=== PATIENT | male | born 1935 | race Caucasian/White ===

== ENCOUNTER → 2019-11-07 | Outpatient (CLI) | payer OTHER, BC ==
[~2019-11-07] MED LIST: AVAPRO75 MG PO; BENICAR 5 MG5 M1 PO; BENICAR20 MG PO; C-10001000 M1 PO; CHROMIUM PICO200 MC1 PO; CITRACAL + D M1 EACH PO; CO Q-10100 MG PO; FUROSEMIDE 40 M40 M1 PO; GARLIC OIL1 EACH PO; L-LYSINE1000 M1 PO; LECITHIN400 MG PO; LEVOTHYROXINE0.05 MG PO; LIPITOR20 MG PO; LORTAB 5-500 T1 EAC1 PO; MULTIVITAMINS PO; OMEGA-31000 M1 PO; POTASSIUM20 PO; PRILOSEC20 MG PO; TAMSULOSIN HCL0.4 MG PO; TENORMIN25 MG PO; VITCB500GO PO
== END ==
LOC: SJCVCIMAG 09:46
DX: I65.23 Occlusion and stenosis of bilateral carotid arteries (principal); I44.7 Left bundle-branch block, unspecified; R94.31 Abnormal electrocardiogram [ECG] [EKG]; I51.7 Cardiomegaly; I44.0 Atrioventricular block, first degree; I25.10 Atherosclerotic heart disease of native coronary artery without angina pectoris; I25.5 Ischemic cardiomyopathy; E78.00 Pure hypercholesterolemia, unspecified; I10 Essential (primary) hypertension

== ENCOUNTER → 2020-06-04 | Outpatient (CLI) | payer OTHER, BC | LOC: SJCVCIMAG 07:01 | PROVIDERS: ATTEND Internal Medicine Cardiovascular Disease | DX: I44.7 Left bundle-branch block, unspecified (principal); I44.0 Atrioventricular block, first degree; I25.10 Atherosclerotic heart disease of native coronary artery without angina pectoris; I25.2 Old myocardial infarction; I25.5 Ischemic cardiomyopathy; E78.00 Pure hypercholesterolemia, unspecified; I65.23 Occlusion and stenosis of bilateral carotid arteries; M19.90 Unspecified osteoarthritis, unspecified site; Z79.899 Other long term (current) drug therapy; Z87.891 Personal history of nicotine dependence ==

== ENCOUNTER → 2020-12-30 | Outpatient (CLI) | payer OTHER, BC ==
[~2020-12-30] VITALS: Ht 172.7 cm; Wt 90.7 kg
[~2020-12-30] MED LIST changes: +LEVO-T50 MCG PO; +LIPITOR80 MG PO; +NITROSTAT0.4 M1 SUBLING
[2020-12-30 13:08] VITALS: BP 91/65
--- NOTE | 2020-12-30 13:42 | NUR ---
Pain Clinic Assessment: 1. History of Osteoarthritis: shoulder hands KNEES History of Rheumatoid Arthritis: Not Applicable 2. Height: 5 ft. 8 in. 172.7 cm. Weight: 200.0 lb. oz. 90.720 kg. Patient's BMI: 30.4 3. Vital Signs: BP: 91/65 Pulse: 80 Resp: 16 Temp: 02 Sat: 97 ECG Mon: 4. Pain Intensity: 5 5. Fall Risk: Dizziness: Y Needs help standing or walking: Y Fallen in the last 3 months: Y Fall risk comments: 6. Patient on Blood Thinner: None 7. History of Hypertension: Y 8. Opioid Therapy greater than 6 weeks: N Opiate Contract Signed: 9. Risk Assessment Tool Provided: low-0 10. Functional Assessment Tool: 11. Recreational Drug Use: Never Drug Type: Tobacco Use: Never Smoker Tobacco Type: Amount or Packs/day: How Many Years: Alcohol Use: No Frequency: Quant:
== END | disposition home or self-care (01) ==
LOC: PAIN 10:54
PROVIDERS: ATTEND Anesthesiology Pain Medicine
DX: M25.511 Pain in right shoulder (principal); M19.011 Primary osteoarthritis, right shoulder; M54.16 Radiculopathy, lumbar region; M48.061 Spinal stenosis, lumbar region without neurogenic claudication; I10 Essential (primary) hypertension; M19.90 Unspecified osteoarthritis, unspecified site; Z87.891 Personal history of nicotine dependence; Z85.828 Personal history of other malignant neoplasm of skin; Z98.890 Other specified postprocedural states; Z79.899 Other long term (current) drug therapy; Z88.8 Allergy status to other drugs, medicaments and biological substances

== ENCOUNTER → 2021-02-25 | Outpatient (CLI) | payer OTHER, BC | LOC: SJCVC 09:23 | PROVIDERS: ATTEND Internal Medicine Cardiovascular Disease | DX: R94.31 Abnormal electrocardiogram [ECG] [EKG] (principal); I25.10 Atherosclerotic heart disease of native coronary artery without angina pectoris; I10 Essential (primary) hypertension; E78.00 Pure hypercholesterolemia, unspecified; I25.5 Ischemic cardiomyopathy; I65.23 Occlusion and stenosis of bilateral carotid arteries; G89.29 Other chronic pain; M54.5 Low back pain; Z85.72 Personal history of non-Hodgkin lymphomas; Z79.82 Long term (current) use of aspirin; Z79.899 Other long term (current) drug therapy; Z88.8 Allergy status to other drugs, medicaments and biological substances; Z87.891 Personal history of nicotine dependence ==

== ENCOUNTER 2021-10-13 17:12 | Inpatient (IN) | payer OTHER, BC ==
[~2021-10-13] VITALS: Ht 172.7 cm; Wt 95.7 kg
[2021-10-13 17:13] VITALS: BP 112/67
[2021-10-13 17:47] LABS: ABSOLUTE NEUTROPHILS 8.6 thou/uL (1.4-8.2); BASOPHILS 0.5 % (0.0-2.0); EOSINOPHILS 3.1 % (0.0-3.0); HEMATOCRIT 37.6 % (42.0-52.0); HEMOGLOBIN 12.3 gm/dL (14.0-18.0); LYMPHOCYTES 10.2 % (24.0-44.0); MCH 32.2 pg (26.0-34.0); MCHC 32.6 g/dL (28.0-37.0); MCV 98.6 fL (80.0-100.0); MONOCYTES 9.5 % (1.0-8.0); PLATELET COUNT 217 thou/uL (150-400); POLYS 76.7 % (36.0-66.0); RBC 3.82 mil/uL (4.50-6.00); RDW 14.4 % (10.5-14.5); WBC 11.2 thou/uL (4.0-11.0)
[2021-10-13 18:16] LABS: CALCIUM 9.5 mg/dL (8.5-10.1); CREATININE 1.5 mg/dL (0.7-1.3); POTASSIUM 4.9 mmol/L (3.5-5.1)
[2021-10-13 18:25] LABS: ALBUMIN 3.3 g/dL (3.4-5.0); TOTAL BILIRUBIN 0.5 mg/dL (0.2-1.0)
[2021-10-14 04:13] VITALS: BP 107/58
--- NOTE | 2021-10-14 07:39 | EKG ---
[address] [address] ELECTROCARDIOGRAM REPORT Name: JONY BURGER Room #: 170-23 ADM IN M.R.#: [id number] Admission: 10/13/21 Attend Phys: Rocco Rosas MD Discharge: Date of : 37 Report #: [id number] [facility] ED Test Date: 2021-10-13 Test Time: 17:19:21 Pat Name: JONY BURGER Department: Room: 170 Gender: M Triage Nurse: BIRGIT : 1935 Requested By: Kwaku Feng Order Number: [id number] MD: Karl Andrade Measurements Intervals [place] Rate: 102 P: -19 AL: 172 QRS: -41 QRSD: 174 T: 131 QT: 390 QTc: 509 Interpretive Statements Sinus tachycardia Left bundle branch block Compared to ECG 06/17/2015 07:35:36 Left bundle-branch block now present Sinus bradycardia no longer present First degree AV block no longer present Myocardial infarct finding no longer present Electronically Signed On 10-14-2021 7:38:56 [employer] by Karl Andrade [email or web address] <ELECTRONICALLY SIGNED> By: Karl Andrade MD, FACC 10/14/21 0738 1719 1719 Karl Andrade MD, [facility] /EPI
[2021-10-14 08:27] VITALS: BP 122/78
--- NOTE | 2021-10-14 12:50 | 2DMMODE ---
[facility] [place] [address] 2 D/M-MODE ECHOCARDIOGRAM Name: JONY BURGER Room #: 170-23 ADM IN M.Jamie.#: [id number] Admission: 10/13/21 Attend Phys: Rocco Rosas MD Discharge: Date of : 37 Report #: [id number] THIS REPORT FOR: cc: Gonzalo Frost James R. DO Lammoglia, Francisco J. MD ~ APPROVED REPORT Study performed: 10/14/2021 11:10:38 EXAM: Comprehensive 2D, Doppler, and color-flow Echocardiogram Patient Location: ER Room #: 23 Status: routine BSA: 2.04 HR: 96 bpm BP: 95/56 mmHg Rhythm: LBBB Other Information Study Quality: Adequate Indications Dyspnea CAD Cardiomyopathy Hypertension/HDD Volumes Left Atrial Volume (Systole) Single Plane 4CH: 37.42 mL Single Plane 2CH: 45.08 mL LA ESV Index: 23.00 mL/m2 Aortic Valve AoV Peak Wade.: 1.14 m/s AO Peak Gr.: 5.23 mmHg LVOT Max P.55 mmHg LVOT Max V: 0.94 m/s Pulmonary Valve PV Peak Wade.: 0.77 m/s PV Peak Gr.: 2.40 mmHg Left Ventricle The left ventricle is normal size. There is hypokinesis in the inferior wall. There is hypokinesis in the posterior wall. There is [facility] [address] [place] [address] 2 D/M-MODE ECHOCARDIOGRAM Name: JONY BURGER Room #: 170-23 ADM IN M.R.#: [id number] Admission: 10/13/21 Attend Phys: Rocco Rosas, Discharge: Date of : 37 Report #: [id number] normal left ventricular wall thickness. Left ventricular ejection fraction is moderately decreased. LVEF is 35%. The left ventricular diastolic function is abnormal. Right Ventricle The right ventricle is normal size. The right ventricular systolic function is normal. Atria The left atrium size is normal. The right atrium size is normal. Aortic Valve The aortic valve is normal in structure. Trace aortic regurgitation. There is no aortic valvular stenosis. Mitral Valve The mitral valve is normal in structure. There is no mitral valve regurgitation noted. No evidence of mitral valve stenosis. Tricuspid Valve The tricuspid valve is normal in structure. There is no tricuspid valve regurgitation noted. Pulmonic Valve The pulmonary valve is normal in structure. There is no pulmonic valvular regurgitation. Great Vessels The aortic root is normal in size. The inferior vena cava is not well visualized. Pericardium There is no pericardial effusion. <Conclusion> The left ventricle is normal size. There is normal left ventricular wall thickness. LVEF is 35%. There is hypokinesis in the inferior wall. There is hypokinesis in the posterior wall. The right ventricle is normal size. The left atrium size is normal. The aortic valve is normal in structure. Trace aortic regurgitation. [facility] [address] [place] [address] 2 D/M-MODE ECHOCARDIOGRAM Name: JONY BURGER Room #: 170-23 ADM IN M.R.#: [id number] Admission: 10/13/21 Attend Phys: Rocco Rosas, Discharge: Date of : 37 Report #: [id number] The mitral valve is normal in structure. The tricuspid valve is normal in structure. The pulmonary valve is normal in structure. The aortic root is normal in size. There is no pericardial effusion. <ELECTRONICALLY SIGNED> By: Jaquan Wiley MD 10/14/21 1250 49 49 Jaquan Wiley MD /INF
[2021-10-14 17:03] VITALS: BP 95/56
[2021-10-14 17:04] VITALS: BP 95/56
[2021-10-14 19:31] VITALS: BP 93/58
[2021-10-15 00:24] VITALS: BP 97/53
[2021-10-15 04:30] VITALS: BP 100/54
[2021-10-15 06:20] LABS: MCH 32.8 pg (26.0-34.0); MCHC 33.5 g/dL (28.0-37.0); RBC 3.07 mil/uL (4.50-6.00); RDW 14.2 % (10.5-14.5); WBC 14.1 thou/uL (4.0-11.0)
[2021-10-15 06:24] LABS: HEMOGLOBIN 10.1 gm/dL (14.0-18.0)
[2021-10-15 06:37] LABS: CALCIUM 8.8 mg/dL (8.5-10.1); MAGNESIUM 2.4 mg/dL (1.8-2.4); POTASSIUM 4.9 mmol/L (3.5-5.1)
[2021-10-15 06:39] LABS: CREATININE 2.8 mg/dL (0.7-1.3)
[2021-10-15 07:07] VITALS: BP 88/56
[2021-10-15 08:01] VITALS: BP 100/49
[2021-10-15 15:15] VITALS: BP 99/57
[2021-10-15 18:54] VITALS: BP 108/65
[2021-10-16 04:15] VITALS: BP 110/66
[2021-10-16 05:27] LABS: ABSOLUTE NEUTROPHILS 12.9 thou/uL (1.4-8.2); BASOPHILS 0.3 % (0.0-2.0); HEMATOCRIT 29.8 % (42.0-52.0); HEMOGLOBIN 9.8 gm/dL (14.0-18.0); LYMPHOCYTES 3.2 % (24.0-44.0); MCH 32.2 pg (26.0-34.0); MCHC 32.9 g/dL (28.0-37.0); MCV 97.6 fL (80.0-100.0); MONOCYTES 3.1 % (1.0-8.0); PLATELET COUNT 188 thou/uL (150-400); POLYS 93.4 % (36.0-66.0); RBC 3.05 mil/uL (4.50-6.00); RDW 14.2 % (10.5-14.5); WBC 13.8 thou/uL (4.0-11.0)
[2021-10-16 06:10] LABS: CALCIUM 8.6 mg/dL (8.5-10.1); CREATININE 2.6 mg/dL (0.7-1.3); MAGNESIUM 2.4 mg/dL (1.8-2.4); POTASSIUM 5.2 mmol/L (3.5-5.1)
[2021-10-16 06:54] VITALS: BP 114/74
[2021-10-16 16:05] VITALS: BP 105/53
[2021-10-16 20:14] VITALS: BP 98/55
[2021-10-17 04:18] VITALS: BP 127/68
[2021-10-17 05:48] LABS: CALCIUM 8.4 mg/dL (8.5-10.1); CREATININE 2.4 mg/dL (0.7-1.3); MAGNESIUM 2.3 mg/dL (1.8-2.4); POTASSIUM 5.5 mmol/L (3.5-5.1)
[2021-10-17 06:11] LABS: HEMOGLOBIN 9.7 gm/dL (14.0-18.0); MCHC 33.6 g/dL (28.0-37.0); MCV 98.3 fL (80.0-100.0); RBC 2.95 mil/uL (4.50-6.00); RDW 14.7 % (10.5-14.5); WBC 10.8 thou/uL (4.0-11.0)
[2021-10-17 08:07] VITALS: BP 121/72
[2021-10-17 15:50] VITALS: BP 121/72
[2021-10-17 19:37] VITALS: BP 116/63
[2021-10-18 05:34] LABS: CALCIUM 8.3 mg/dL (8.5-10.1); CREATININE 2.1 mg/dL (0.7-1.3); POTASSIUM 5.1 mmol/L (3.5-5.1)
[2021-10-18 05:48] LABS: HEMATOCRIT 28.5 % (42.0-52.0); HEMOGLOBIN 9.8 gm/dL (14.0-18.0); MCH 33.7 pg (26.0-34.0); MCHC 34.3 g/dL (28.0-37.0); RBC 2.9 mil/uL (4.50-6.00); RDW 14.8 % (10.5-14.5); WBC 10.2 thou/uL (4.0-11.0)
[2021-10-18 09:26] VITALS: BP 106/66
[2021-10-18 10:46] VITALS: BP 106/66
[2021-10-18 16:16] VITALS: BP 110/76; BP 118/55
[2021-10-18 19:54] VITALS: BP 112/74
[2021-10-19 04:22] VITALS: BP 124/80
[2021-10-19 06:48] LABS: HEMOGLOBIN 11.1 gm/dL (14.0-18.0); MCH 32.7 pg (26.0-34.0); MCHC 33.5 g/dL (28.0-37.0); MCV 97.6 fL (80.0-100.0); RBC 3.38 mil/uL (4.50-6.00); RDW 14.8 % (10.5-14.5); WBC 13.1 thou/uL (4.0-11.0)
[2021-10-19 07:00] VITALS: BP 124/75
[2021-10-19 07:08] LABS: CALCIUM 8.5 mg/dL (8.5-10.1); CREATININE 2.1 mg/dL (0.7-1.3)
[2021-10-19 07:10] LABS: POTASSIUM 5.4 mmol/L (3.5-5.1)
[2021-10-19 15:30] VITALS: BP 107/76
[2021-10-19 18:56] VITALS: BP 105/82
[2021-10-20 04:43] LABS: HEMATOCRIT 32.5 % (42.0-52.0); HEMOGLOBIN 10.9 gm/dL (14.0-18.0); MCH 32.5 pg (26.0-34.0); MCHC 33.5 g/dL (28.0-37.0); RBC 3.35 mil/uL (4.50-6.00); RDW 14.2 % (10.5-14.5); WBC 16.4 thou/uL (4.0-11.0)
[2021-10-20 04:50] LABS: CALCIUM 8.1 mg/dL (8.5-10.1); CREATININE 2.1 mg/dL (0.7-1.3); POTASSIUM 4.5 mmol/L (3.5-5.1)
[2021-10-20 07:03] VITALS: BP 112/73
[2021-10-20 12:03] VITALS: BP 111/76
[2021-10-20 15:29] VITALS: BP 126/64
[2021-10-20 20:01] VITALS: BP 131/83
== END 2021-10-21 | disposition still patient (30) | DRG 177 ==
LOC: ER 17:12 → 4W 19:42 → EROBS 19:42 → 4W 10-14 17:06
PROVIDERS: Emergency Medicine; Hospitalist; Internal Medicine; ADMIT Internal Medicine; ATTEND Internal Medicine
PROC: 5A0935A Assistance with Respiratory Ventilation, Less than 24 Consecutive Hours, High Flow/Velocity Cannula (ICD-10-PCS; principal; 2021-10-19)
PROC: 5A0935A Assistance with Respiratory Ventilation, Less than 24 Consecutive Hours, High Flow/Velocity Cannula (ICD-10-PCS; 2021-10-20)
DX: J69.0 Pneumonitis due to inhalation of food and vomit (principal); A41.9 Sepsis, unspecified organism; J96.21 Acute and chronic respiratory failure with hypoxia; I50.23 Acute on chronic systolic (congestive) heart failure; R65.21 Severe sepsis with septic shock; N17.9 Acute kidney failure, unspecified; I13.0 Hypertensive heart and chronic kidney disease with heart failure and stage 1 through stage 4 chronic kidney disease, or unspecified chronic kidney disease; N18.4 Chronic kidney disease, stage 4 (severe); E87.1 Hypo-osmolality and hyponatremia; E87.3 Alkalosis; U09.9 Post COVID-19 condition, unspecified; J84.10 Pulmonary fibrosis, unspecified; D64.9 Anemia, unspecified; I25.10 Atherosclerotic heart disease of native coronary artery without angina pectoris; I25.5 Ischemic cardiomyopathy; E03.9 Hypothyroidism, unspecified; E78.5 Hyperlipidemia, unspecified; G89.29 Other chronic pain; Z20.822 Contact with and (suspected) exposure to COVID-19; B37.9 Candidiasis, unspecified; D69.6 Thrombocytopenia, unspecified; E87.5 Hyperkalemia; Z66 Do not resuscitate; K12.30 Oral mucositis (ulcerative), unspecified; Z51.5 Encounter for palliative care; Z85.79 Personal history of other malignant neoplasms of lymphoid, hematopoietic and related tissues; Z95.5 Presence of coronary angioplasty implant and graft; Z85.72 Personal history of non-Hodgkin lymphomas; Z88.6 Allergy status to analgesic agent; Z88.1 Allergy status to other antibiotic agents; Z88.8 Allergy status to other drugs, medicaments and biological substances; Z87.891 Personal history of nicotine dependence
CPT/HCPCS: 10045